=== PATIENT | female | born 1965 | race African-American/Black ===

== ENCOUNTER 2019-05-18 18:00 | Emergency (ER) | payer MEDICARE, MEDICAID ==
[~2019-05-18] VITALS: Ht 175.3 cm; Wt 84.0 kg
[2019-05-18] MEDS ORDERED: KETOROLAC 60MG/2ML VIAL IM ONE (20:15)
[2019-05-18 22:19] VITALS: BP 149/91
== END 2019-05-18 22:20 | disposition home or self-care (01) ==
LOC: ER 18:00
DX: S70.02XA Contusion of left hip, initial encounter (principal); E11.9 Type 2 diabetes mellitus without complications; Z88.2 Allergy status to sulfonamides; Z98.890 Other specified postprocedural states; W01.0XXA Fall on same level from slipping, tripping and stumbling without subsequent striking against object, initial encounter; Y93.89 Activity, other specified; Y92.811 Bus as the place of occurrence of the external cause
CPT/HCPCS: 73502; 96372; 99283; J1885